=== PATIENT | male | born 1955 | race Two or more races ===

== ENCOUNTER 2019-11-07 13:01 | Emergency (ER) | payer MEDICAID, OTHER ==
[~2019-11-07] VITALS: Ht 30.5 cm; Wt 0.5 kg
[2019-11-07 13:01] VITALS: BP 0/0
[2019-11-07] MEDS ORDERED: AMIODARONE HCL (50 MG/ ML) 3 ML VIAL IV ONE (13:02)
[2019-11-07] MEDS ORDERED: SODIUM BICARBONATE 8.4 % INJ 50ML VIAL IV ONE (13:02)
[2019-11-07] MEDS ORDERED: EPINEPHrine HCL 1 MG/10 ML SYRG IV ONE (13:02)
[2019-11-07] MEDS ORDERED: CALCIUM CHLOR(10%) 100MG/ML 10ML SYRINGE IV ONE (13:02)
== END 2019-11-07 13:07 | disposition expired ==
LOC: ER 13:01 → EDBD 13:01 → ER 13:07
DX: I46.9 Cardiac arrest, cause unspecified (principal); J96.21 Acute and chronic respiratory failure with hypoxia
CPT/HCPCS: 92950; 99285; J0171; J0282